=== PATIENT | female | born 1960 | race Caucasian/White ===

== ENCOUNTER 2019-11-20 07:13 | Emergency (ER) | payer OTHER, BC ==
[~2019-11-20] VITALS: Ht 172 cm; Wt 108.8 kg
[2019-11-20] MEDS ORDERED: TETANUS,DIPTH,PERTUSS P/F (BOOSTRIX) 0.5 ML VIAL IM ONE (07:30)
[2019-11-20] MEDS ORDERED: LIDOCAINE/EPI 2% 1:100,00 (XYLOCAINE) 20 ML VIAL INJ ONE (07:30)
[2019-11-20] MEDS ORDERED: SODIUM BICARB 8.4% 50 MEQ/50 ML VIAL IV ONE (07:30)
[2019-11-20] MEDS ORDERED: LOSARTAN (07:30)
[2019-11-20] MEDS ORDERED: HYDROCODONE (07:31)
--- NOTE | 2019-11-20 08:20 | NUR ---
TO [facility] WITH JAIMEE.
--- NOTE | 2019-11-20 08:25 | ED Upper Extremity ---
General Chief Complaint: Laceration Stated Complaint: L HAND LACERATION AT WORK Nursing Triage Note: STATES SHE WAS AT WORK AT [employer] AND CUT HER LEFT PALM ON A PLASTIC NANDO TRAY. Nursing Sepsis Screen: No Definite Risk Source: patient Exam Limitations: no limitations History of Present Illness Date Seen by Provider: Nov 20, 2019 Time Seen by Provider: 07:20 Initial Comments This 59-year-old woman presents to the emergency room with a laceration on the left hand on the ulnar palmar aspect near the wrist. She was trying to close a slot machine door at work. She was unable to do this by hand. She then used a plastic ashtray to try to push on the door. The ashtray shattered and lacerated her hand. Her last tetanus shot was more than 5 years ago. Wound has mild to moderate bleeding. She comes with a pressure dressing on the wound. There is no impairment to flexor tendon function. Allergies and Home Medications Allergies Coded Allergies: No Known Drug Allergies (Unverified , 11/20/19) Patient Home Medication List Home Medication List Reviewed: Yes Review of Systems Constitutional: no symptoms reported EENTM: no symptoms reported Respiratory: no symptoms reported Cardiovascular: no symptoms reported Gastrointestinal: no symptoms reported Genitourinary: no symptoms reported : No Musculoskeletal: no symptoms reported Skin: see HPI Psychiatric/Neurological: No Symptoms Reported Past [id number] Hx Past Med/Social Hx: Reviewed Nursing Past Med/Soc Hx Patient Social History Alcohol Use: Denies Use Recreational Drug Use: No Smoking Status: Current Everyday Smoker Recent Foreign Travel: No Contact w/Someone Who Travel: No Recent Infectious Disease Expo: No Recent Hopitalizations: No Seasonal Allergies Seasonal Allergies: No Past Medical History Surgeries: Yes Section, Tonsillectomy Respiratory: Yes COPD Cardiac: Yes Hypertension Neurological: No Genitourinary: No Gastrointestinal: No Musculoskeletal: No Endocrine: No HEENT: No Cancer: No Psychosocial: No Integumentary: No Physical Exam Vital Signs Vital Signs - First Documented 11/20/19 07:17 Temp 35.1 Pulse 96 Resp 16 B/P (MAP) 198/98 (131) Pulse Ox 100 O2 Delivery Room Air Capillary Refill : Less Than 3 Seconds Height, Weight, BMI Height: '" Weight: lbs. oz. kg; 36.00 BMI Method: General Appearance: WD/WN, no apparent distress HEENT: normal ENT inspection Respiratory: normal breath sounds, no respiratory distress Elbow/Forearm: normal inspection, no evidence of injury, normal ROM, Left Wrist: Yes normal inspection, Yes non-tender, Yes no evidence of injury, Yes normal ROM Hand: Left (L-shaped laceration on the ulnar palmar aspect of the left hand anupam r the wrist. Tissue is gaping with subcutaneous tissue exposed. There is some light debris, possibly ashes. There is oozing bleeding. Flexor tendon function intact. Distal exam normal.) Neurologic/Tendon: normal sensation, normal motor functions Neurologic/Psychiatric: mobile phlebotomist II-XII nml as tested, no motor/sensory deficits, alert, normal mood/affect, oriented x 3 Skin: normal color, warm/dry, other (see above) Procedures/Interventions Wound Location: Upper Extremities Other Wound Location Palmar ulnar aspect of left hand near the wrist. Wound Length (cm): 3 Wound's Depth, Shape: linear, flap, sub Q Wound Explored: foreign body removed (light debris removed with irrigation and scrubbing) Irrigated w/ Saline (ccs): 500 Betadine Prep?: Yes Anesthesia: Lidocaine w/ Epi (buffered) Suture: Prolene Suture Size: 4-0 Number of Sutures: 7 Sterile Dressing Applied?: Yes Progress/Results/Core Measures Results/Orders My Orders Orders - SUZANNE GROVER MD Lidocaine/Epi 2% 1:100,000 (Xylocaine/Ep (11/20/19 07:30) Sodium Bicarbonate 8.4% Vial (Sodium Bic (11/20/19 07:30) Dipht,Pertuss(Acell),Tet Adult (Boostrix (11/20/19 07:30) Medications Given in ED Current Medications Medications Dose Ordered Sig/Simone Route Start Time Stop Time Status Last Admin Dose Admin Diphtheria/ Tetanus/Acell Pertussis 0.5 ml ONCE ONCE IM 11/20/19 07:30 11/20/19 07:31 DC 11/20/19 07:35 0.5 ML Lidocaine/ Epinephrine 20 ml ONCE ONCE INJ 11/20/19 07:30 11/20/19 07:31 DC 11/20/19 07:36 20 ML Sodium Bicarbonate 50 meq ONCE ONCE IV 11/20/19 07:30 11/20/19 07:31 DC 11/20/19 07:36 50 MEQ Vital Signs/I&O 1/19/20 07:17 Temp 35.1 Pulse 96 Resp 16 B/P (MAP) 198/98 (131) Pulse Ox 100 O2 Delivery Room Air Blood Pressure Mean: 131 Progress Progress Note : Progress Note Wound was irrigated and scrubbed with normal saline and chlorhexidine. Some light debris was removed with irrigation. It was then repaired with 4-0 Prolene suture. There was good hemostasis. A light pressure dressing was applied. Boostrix tetanus immunization was administered. Work comp paperwork was c ompleted. Departure Impression Primary Impression: Laceration of left hand Qualified Codes: S61.412A - Laceration without foreign body of left hand, initial encounter Disposition: HOME, SELF-CARE Condition: Improved Departure-Patient Inst. Decision time for Depature: 08:10 Referrals: JD SHORT (PCP/Family) Primary Care Physician Patient Instructions: Laceration Repair With Stitches (DC) Add. Discharge Instructions: Keep the wound clean and dry. Cover when active or in dirty environments to prevent contamination or disrupting sutures. You may use Vaseline or antibiotic ointment to prevent dressing from sticking to the wound. You may shower and wash hands starting this afternoon but avoid submersion until sutures are removed. Monitor the wound for signs of infection including increasing redness, increasing pain, fever, puslike drainage, etc. Return to care promptly if you notice these symptoms. Return to the ER in about 10 days to have sutures removed. All discharge instructions reviewed with patient and/or family. Voiced understanding. SUZANNE GROVER MD Nov 20, 2019 08:24
[2019-11-20 08:36] VITALS: BP 198/98
== END 2019-11-20 08:33 | disposition home or self-care (01) ==
LOC: ER 07:15
DX: S61.412A Laceration without foreign body of left hand, initial encounter (principal); J44.9 Chronic obstructive pulmonary disease, unspecified; I10 Essential (primary) hypertension; F17.200 Nicotine dependence, unspecified, uncomplicated; Z23 Encounter for immunization; Z90.89 Acquired absence of other organs; W26.8XXA Contact with other sharp object(s), not elsewhere classified, initial encounter; Y92.59 Other trade areas as the place of occurrence of the external cause
CPT/HCPCS: 12042; 90471; 90715; 96374

== ENCOUNTER 2019-11-30 07:30 | Emergency (ER) | payer OTHER, BC ==
[~2019-11-30] VITALS: Ht 172 cm; Wt 108.8 kg
[~2019-11-30 07:30] MED LIST: HYDROCODONE; LOSARTAN
[2019-11-30 07:44] VITALS: BP 138/83
== END 2019-11-30 07:46 | disposition home or self-care (01) ==
LOC: EDUNIT# 07:30 → ER 07:32
DX: S61.412D Laceration without foreign body of left hand, subsequent encounter (principal); X58.XXXD Exposure to other specified factors, subsequent encounter